=== PATIENT | female | born 1980 | race Caucasian/White ===

== ENCOUNTER 2021-05-09 10:43 | Emergency (ER) | payer OTHER ==
[2021-05-09] MEDS ORDERED: Levofloxacin 500 MG Tab PO ONE ×2 (10:44→12:46)
[2021-05-09] MEDS ORDERED: Acetaminophen/HYDROcodone 325-5 MG Tab PO ONE (12:47)
== END 2021-05-09 13:20 | disposition home or self-care (01) ==
LOC: FB.ED 10:43
DX: S00.502A Unspecified superficial injury of oral cavity, initial encounter (principal); K04.7 Periapical abscess without sinus; K02.9 Dental caries, unspecified; Z88.0 Allergy status to penicillin; Z88.2 Allergy status to sulfonamides; W50.0XXA Accidental hit or strike by another person, initial encounter
CPT/HCPCS: 99282; A9270

== ENCOUNTER 2021-08-16 23:03 | Emergency (ER) | payer MEDICAID, OTHER ==
[2021-08-16] MEDS: hydrOXYzine HCl 50 MG/ML SDV IM ONE (23:20)
[2021-08-16] MEDS: diphenhydrAMINE 50 MG/ML SDV IM ONE (23:20)
[2021-08-16] MEDS: LORazepam 2 MG/ML SDV IM ONE (23:20)
== END 2021-08-16 23:45 | disposition home or self-care (01) ==
LOC: FB.ED 23:03
DX: R06.00 Dyspnea, unspecified (principal); Z88.0 Allergy status to penicillin; Z88.2 Allergy status to sulfonamides
CPT/HCPCS: 96372; 99282; 99283; J1200; J2060; J3410

== ENCOUNTER 2021-08-21 14:33 | Emergency (ER) | payer MEDICAID ==
[2021-08-21] MEDS ORDERED: Doxycycline 100 MG Tab PO ONE (15:38)
== END 2021-08-21 16:00 | disposition home or self-care (01) ==
LOC: FB.ED 14:33
DX: H60.01 Abscess of right external ear (principal); Z79.899 Other long term (current) drug therapy; Z88.0 Allergy status to penicillin; Z88.2 Allergy status to sulfonamides
CPT/HCPCS: 99282; A9270-GY

== ENCOUNTER 2022-07-13 17:00 | Emergency (ER) | payer MEDICAID ==
[2022-07-13] MEDS ORDERED: SUMAtriptan 6 MG/0.5 ML SDV SUBCUT ONE (17:23)
[2022-07-13] MEDS ORDERED: Ketorolac 30 MG/ML SDV IM ONE (17:23)
== END 2022-07-13 18:22 | disposition home or self-care (01) ==
LOC: FB.ED 17:00
DX: G43.909 Migraine, unspecified, not intractable, without status migrainosus (principal); F17.210 Nicotine dependence, cigarettes, uncomplicated; Z88.0 Allergy status to penicillin; Z88.2 Allergy status to sulfonamides; Z79.899 Other long term (current) drug therapy
CPT/HCPCS: 96372; 99283; J1885; J3030

== ENCOUNTER 2022-10-03 21:38 | Emergency (ER) | payer MEDICAID ==
[2022-10-03] MEDS: Lidocaine 2% HCl 6 ML Jel MM STA (22:13)
[2022-10-03] MEDS: Clindamycin HCl 150 MG Cap PO ONE (22:34)
== END 2022-10-03 22:42 | disposition home or self-care (01) ==
LOC: FB.ED 21:38
DX: K02.9 Dental caries, unspecified (principal); K05.6 Periodontal disease, unspecified; F17.210 Nicotine dependence, cigarettes, uncomplicated; Z88.0 Allergy status to penicillin; Z88.2 Allergy status to sulfonamides
CPT/HCPCS: 99282; A9270

== ENCOUNTER 2023-06-01 21:33 | Emergency (ER) | payer MEDICAID ==
[2023-06-01] MEDS: Ketorolac 30 MG/ML SDV IM ONE (22:11)
[2023-06-01] MEDS: LORazepam 2 MG/ML SDV IM ONE (22:17)
== END 2023-06-01 22:33 | disposition home or self-care (01) ==
LOC: FB.ED 21:33
DX: G43.911 Migraine, unspecified, intractable, with status migrainosus (principal); F41.9 Anxiety disorder, unspecified; Z79.899 Other long term (current) drug therapy; Z88.0 Allergy status to penicillin; Z88.2 Allergy status to sulfonamides
CPT/HCPCS: 96372; 99283; J1885; J2060

== ENCOUNTER 2024-01-09 16:47 | Emergency (ER) | payer MEDICAID | END 2024-01-09 17:38 | disposition home or self-care (01) | LOC: FB.ED 16:47 | DX: I83.812 Varicose veins of left lower extremity with pain (principal); M54.10 Radiculopathy, site unspecified; F17.210 Nicotine dependence, cigarettes, uncomplicated; Z79.899 Other long term (current) drug therapy; Z88.0 Allergy status to penicillin; Z88.2 Allergy status to sulfonamides | CPT/HCPCS: 93010; 99283 ==

== ENCOUNTER 2024-03-25 11:02 | Emergency (ER) | payer MEDICAID ==
[2024-03-25 11:54] LABS: BASOPHILS ABSOLUTE AUTO 0.1 x10-3/uL (0.0-0.1); BASOPHILS PERCENT AUTO 0.5 % (0.2-1.5); EOSINOPHILS ABSOLUTE AUTO 0.4 x10-3/uL (0.0-0.8); EOSINOPHILS PERCENT AUTO 3.6 % (0.6-8.1); HEMOGLOBIN 14.2 g/dL (11.4-15.5); LYMPHOCYTES ABSOLUTE AUTO 3.3 x10-3/uL (1.0-4.4); LYMPHOCYTES PERCENT AUTO 29.4 % (18.4-52.1); MEAN CORPUSCULAR HEMOGLOBIN 32.6 pg (23.9-33.9); MEAN CORPUSCULAR HGB CONC 34.7 g/dL (31.9-34.8); MEAN CORPUSCULAR VOLUME 94.1 fL (76.7-100.5); MEAN PLATELET VOLUME 8.3 fL (7.1-12.4); MONOCYTES ABSOLUTE AUTO 0.3 x10-3/uL (0.3-1.0); MONOCYTES PERCENT AUTO 2.7 % (4.4-15.7); NEUTROPHILS ABSOLUTE AUTO 7.1 x10-3/uL (1.5-6.3); NEUTROPHILS PERCENT AUTO 63.8 % (30.8-76.2); PLATELET COUNT,PLT 309 x10(3)uL (151-488); RED BLOOD CELL COUNT 4.36 x10(6)uL (3.60-5.20); RED CELL DISTRIBUTION WIDTH 13.4 % (12.3-16.5); WHITE BLOOD CELL COUNT,WBC 11.2 x10-3/uL (3.0-10.3)
[2024-03-25 12:00] LABS: BLOOD UREA NITROGEN,BUN 8 mg/dL (7-18); BUN/CREATININE RATIO 8.9 (9-20); CALCIUM 8.8 mg/dL (8.6-10.2); CARBON DIOXIDE,CO2 28 mmol/L (21-32); CHLORIDE,CL 105 mmol/L (100-110); CREATININE 0.9 mg/dL (0.55-1.02); ESTIMATED GFR 80 mL/min (>60); GLUCOSE RANDOM 88 mg/dL (80-116); POTASSIUM,K 3.3 mmol/L (3.5-5.3); SODIUM,NA 144 mmol/L (135-145)
[2024-03-25 12:06] LABS: A/G RATIO 1.1; ALANINE AMINOTRANSFERASE,ALT 20 U/L (12-36); ALBUMIN 3.6 g/dL (3.5-5.2); ALKALINE PHOSPHATASE 73 IU/L (56-112); ASPARTATE AMNIOTRANSFERASE,AST 14 IU/L (5-25); BILIRUBIN TOTAL 0.4 mg/dL (0.1-1.3); PROTEIN TOTAL,TP 6.9 g/dL (6.0-8.0)
== END 2024-03-25 12:25 | disposition home or self-care (01) ==
LOC: FB.ED 11:02
DX: R07.89 Other chest pain (principal); E87.6 Hypokalemia; Z88.0 Allergy status to penicillin; Z88.2 Allergy status to sulfonamides; Z79.899 Other long term (current) drug therapy
CPT/HCPCS: 36415; 80053; 84484; 85025; 85379; 93005; 99285

== ENCOUNTER 2024-07-25 19:31 | Emergency (ER) | payer SELFPAY | END 2024-07-25 20:30 | disposition home or self-care (01) | LOC: FB.ED 19:31 | DX: N95.9 Unspecified menopausal and perimenopausal disorder (principal); Z32.02 Encounter for pregnancy test, result negative; Z88.0 Allergy status to penicillin; Z88.2 Allergy status to sulfonamides; Z79.899 Other long term (current) drug therapy | CPT/HCPCS: 36415; 84702; 99282 ==

== ENCOUNTER 2024-12-06 19:42 | Emergency (ER) | payer MEDICAID | END 2024-12-06 20:52 | disposition home or self-care (01) | LOC: FB.ED 19:42 | DX: K04.7 Periapical abscess without sinus (principal); Z79.899 Other long term (current) drug therapy; Z88.1 Allergy status to other antibiotic agents; Z88.0 Allergy status to penicillin; Z88.2 Allergy status to sulfonamides; Z91.040 Latex allergy status | CPT/HCPCS: 87426; 99283; A9270 ==

== ENCOUNTER 2024-12-21 09:37 | Emergency (ER) | payer MEDICAID ==
[2024-12-21] MEDS ORDERED: Sodium Chloride 0.9% 10 ML Syringe FLUSH PRN (10:24)
[2024-12-21] MEDS: Ketorolac 30 MG/ML SDV IVPUSH ONE (10:32)
[2024-12-21] MEDS: hydrOXYzine HCl 50 MG/ML SDV IM ONE (10:35)
[2024-12-21 10:37] LABS: BASOPHILS ABSOLUTE AUTO 0.1 x10-3/uL (0.0-0.1); BASOPHILS PERCENT AUTO 1.0 % (0.2-1.5); EOSINOPHILS ABSOLUTE AUTO 0.3 x10-3/uL (0.0-0.8); EOSINOPHILS PERCENT AUTO 5.6 % (0.6-8.1); LYMPHOCYTES ABSOLUTE AUTO 1.5 x10-3/uL (1.0-4.4); LYMPHOCYTES PERCENT AUTO 26.6 % (18.4-52.1); MEAN PLATELET VOLUME 8.8 fL (7.1-12.4); MONOCYTES ABSOLUTE AUTO 0.2 x10-3/uL (0.3-1.0); MONOCYTES PERCENT AUTO 4.4 % (4.4-15.7); NEUTROPHILS ABSOLUTE AUTO 3.4 x10-3/uL (1.5-6.3); NEUTROPHILS PERCENT AUTO 62.4 % (30.8-76.2); PLATELET COUNT,PLT 281 x10(3)uL (151-488); RED BLOOD CELL COUNT 4.33 x10(6)uL (3.60-5.20); RED CELL DISTRIBUTION WIDTH 12.7 % (12.3-16.5); WHITE BLOOD CELL COUNT,WBC 5.5 x10-3/uL (3.0-10.3)
[2024-12-21 10:39] LABS: CARBON DIOXIDE,CO2 26 mmol/L (21-32); CHLORIDE,CL 105 mmol/L (100-110); CREATININE 0.7 mg/dL (0.55-1.02); EST CRCL DRUG DOSING (CG) 84.89 mL/min; ESTIMATED GFR 108 mL/min (>60); GLUCOSE RANDOM 106 mg/dL (80-116); POTASSIUM,K 3.0 mmol/L (3.5-5.3); SODIUM,NA 140 mmol/L (135-145)
[2024-12-21 10:40] LABS: BLOOD UREA NITROGEN,BUN < 5 mg/dL (7-18)
[2024-12-21 10:46] LABS: A/G RATIO 1.0; ALANINE AMINOTRANSFERASE,ALT 16 U/L (12-36); ASPARTATE AMNIOTRANSFERASE,AST 15 IU/L (5-25); BILIRUBIN TOTAL 0.5 mg/dL (0.1-1.3); PROTEIN TOTAL,TP 7.1 g/dL (6.0-8.0)
[2024-12-21] MEDS ORDERED: Potassium Chloride 20 MEQ Tab.ER PO ONE (11:03)
[2024-12-21] MEDS: Potassium Chloride 20 MEQ Tab.ER PO ONE (11:11)
== END 2024-12-21 12:00 | disposition home or self-care (01) ==
LOC: FB.ED 09:37
DX: G43.109 Migraine with aura, not intractable, without status migrainosus (principal); F17.200 Nicotine dependence, unspecified, uncomplicated; Z88.0 Allergy status to penicillin; Z88.1 Allergy status to other antibiotic agents; Z88.2 Allergy status to sulfonamides; Z91.040 Latex allergy status; Z79.899 Other long term (current) drug therapy
CPT/HCPCS: 80053; 85025; 86140; 96361; 96372; 96374; 99284; A9270; J1885; J3410; J7030

== ENCOUNTER 2025-01-22 19:35 | Emergency (ER) | payer MEDICAID ==
[2025-01-22] MEDS: diphenhydrAMINE 50 MG/ML SDV IVPUSH ONE (20:11)
[2025-01-22] MEDS: Ketorolac 30 MG/ML SDV IVPUSH ONE (20:11)
[2025-01-22 20:27] LABS: BASOPHILS ABSOLUTE AUTO 0.1 x10-3/uL (0.0-0.1); EOSINOPHILS ABSOLUTE AUTO 0.1 x10-3/uL (0.0-0.8); EOSINOPHILS PERCENT AUTO 1.2 % (0.6-8.1); LYMPHOCYTES ABSOLUTE AUTO 1.1 x10-3/uL (1.0-4.4); MONOCYTES ABSOLUTE AUTO 0.3 x10-3/uL (0.3-1.0); NEUTROPHILS ABSOLUTE AUTO 6.2 x10-3/uL (1.5-6.3)
[2025-01-22 20:31] LABS: BASOPHILS PERCENT AUTO 0.9 % (0.2-1.5); LYMPHOCYTES PERCENT AUTO 14.6 % (18.4-52.1); MEAN PLATELET VOLUME 8.9 fL (7.1-12.4); MONOCYTES PERCENT AUTO 3.8 % (4.4-15.7); NEUTROPHILS PERCENT AUTO 79.5 % (30.8-76.2); PLATELET COUNT,PLT 267 x10(3)uL (151-488); RED BLOOD CELL COUNT 4.33 x10(6)uL (3.60-5.20); RED CELL DISTRIBUTION WIDTH 12.1 % (12.3-16.5); WHITE BLOOD CELL COUNT,WBC 7.8 x10-3/uL (3.0-10.3)
[2025-01-22 20:34] LABS: BLOOD UREA NITROGEN,BUN 8 mg/dL (7-18); CARBON DIOXIDE,CO2 25 mmol/L (21-32); CHLORIDE,CL 106 mmol/L (100-110); CREATININE 0.7 mg/dL (0.55-1.02); ESTIMATED GFR 108 mL/min (>60); GLUCOSE RANDOM 118 mg/dL (80-116); POTASSIUM,K 2.9 mmol/L (3.5-5.3); SODIUM,NA 142 mmol/L (135-145)
[2025-01-22 20:41] LABS: A/G RATIO 1.0; ALANINE AMINOTRANSFERASE,ALT 15 U/L (12-36); ASPARTATE AMNIOTRANSFERASE,AST 20 IU/L (5-25); BILIRUBIN TOTAL 0.5 mg/dL (0.1-1.3); PROTEIN TOTAL,TP 7.1 g/dL (6.0-8.0)
[2025-01-22] MEDS: hydrOXYzine HCl 50 MG/ML SDV IM ONE (20:58)
[2025-01-22] MEDS: Ondansetron 4 MG/2 ML SDV IVPUSH ONE (21:00)
[2025-01-22] MEDS: LORazepam 2 MG/ML SDV IVPUSH ONE (21:33)
== END 2025-01-22 21:45 | disposition home or self-care (01) ==
LOC: FB.ED 19:35
DX: F41.9 Anxiety disorder, unspecified (principal); R11.2 Nausea with vomiting, unspecified; Z88.1 Allergy status to other antibiotic agents; Z88.2 Allergy status to sulfonamides; Z88.0 Allergy status to penicillin; Z79.899 Other long term (current) drug therapy
CPT/HCPCS: 80053; 85025; 86140; 96361; 96372; 96374; 96375; 99284; J1200; J1885; J2060; J2405; J2765; J3410; J7030

== ENCOUNTER 2025-02-15 03:03 | Emergency (ER) | payer MEDICAID ==
[2025-02-15] MEDS: Sodium Chloride 0.9% 10 ML Syringe FLUSH PRN (03:40)
[2025-02-15] MEDS: Ketorolac 30 MG/ML SDV IVPUSH ONE (03:40)
[2025-02-15 03:43] LABS: BASOPHILS ABSOLUTE AUTO 0.1 x10-3/uL (0.0-0.1); BASOPHILS PERCENT AUTO 0.7 % (0.2-1.5); EOSINOPHILS ABSOLUTE AUTO 0.5 x10-3/uL (0.0-0.8); EOSINOPHILS PERCENT AUTO 6.7 % (0.6-8.1); LYMPHOCYTES ABSOLUTE AUTO 1.8 x10-3/uL (1.0-4.4); LYMPHOCYTES PERCENT AUTO 26.5 % (18.4-52.1); MEAN PLATELET VOLUME 8.8 fL (7.1-12.4); MONOCYTES ABSOLUTE AUTO 0.3 x10-3/uL (0.3-1.0); MONOCYTES PERCENT AUTO 5.0 % (4.4-15.7); NEUTROPHILS ABSOLUTE AUTO 4.2 x10-3/uL (1.5-6.3); NEUTROPHILS PERCENT AUTO 61.1 % (30.8-76.2); PLATELET COUNT,PLT 256 x10(3)uL (151-488); RED BLOOD CELL COUNT 4.41 x10(6)uL (3.60-5.20); RED CELL DISTRIBUTION WIDTH 12.9 % (12.3-16.5); WHITE BLOOD CELL COUNT,WBC 6.8 x10-3/uL (3.0-10.3)
[2025-02-15 03:47] LABS: BLOOD UREA NITROGEN,BUN 8 mg/dL (7-18); CARBON DIOXIDE,CO2 28 mmol/L (21-32); CHLORIDE,CL 104 mmol/L (100-110); CREATININE 0.8 mg/dL (0.55-1.02); EST CRCL DRUG DOSING (CG) 72.69 mL/min; ESTIMATED GFR 92 mL/min (>60); GLUCOSE RANDOM 93 mg/dL (80-116); POTASSIUM,K 3.2 mmol/L (3.5-5.3); SODIUM,NA 142 mmol/L (135-145)
[2025-02-15 03:53] LABS: A/G RATIO 0.9; ALANINE AMINOTRANSFERASE,ALT 10 U/L (12-36); ASPARTATE AMNIOTRANSFERASE,AST 11 IU/L (5-25); BILIRUBIN TOTAL 0.4 mg/dL (0.1-1.3); PROTEIN TOTAL,TP 6.9 g/dL (6.0-8.0)
[2025-02-15] MEDS: LORazepam 2 MG/ML SDV IVPUSH ONE (04:02)
[2025-02-15] MEDS: Potassium Chloride 20 MEQ Tab.ER PO ONE (04:59)
== END 2025-02-15 05:10 | disposition home or self-care (01) ==
LOC: FB.ED 03:03
DX: K51.80 Other ulcerative colitis without complications (principal); E87.6 Hypokalemia; F17.210 Nicotine dependence, cigarettes, uncomplicated; Z88.1 Allergy status to other antibiotic agents; Z88.0 Allergy status to penicillin; Z88.2 Allergy status to sulfonamides; Z88.8 Allergy status to other drugs, medicaments and biological substances; Z79.899 Other long term (current) drug therapy
CPT/HCPCS: 36415; 74176; 80053; 83690; 85025; 86140; 96361; 96374; 96375; 99284; A9270; J1885; J2060; J7030; J7512

== ENCOUNTER 2025-02-24 03:45 | Emergency (ER) | payer BC, MEDICAID ==
[2025-02-24] MEDS ORDERED: Sodium Chloride 0.9% 10 ML Syringe FLUSH PRN (04:28)
[2025-02-24] MEDS: Ondansetron 4 MG/2 ML SDV IVPUSH ONE (04:39)
[2025-02-24] MEDS: diphenhydrAMINE 50 MG/ML SDV IVPUSH ONE (04:39)
[2025-02-24 04:56] LABS: MEAN PLATELET VOLUME 8.1 fL (7.1-12.4); PLATELET COUNT,PLT 332 x10(3)uL (151-488); RED BLOOD CELL COUNT 4.90 x10(6)uL (3.60-5.20); RED CELL DISTRIBUTION WIDTH 13.2 % (12.3-16.5); WHITE BLOOD CELL COUNT,WBC 10.6 x10-3/uL (3.0-10.3)
[2025-02-24 05:00] LABS: BLOOD UREA NITROGEN,BUN 7 mg/dL (7-18); CARBON DIOXIDE,CO2 32 mmol/L (21-32); CHLORIDE,CL 102 mmol/L (100-110); CREATININE 0.8 mg/dL (0.55-1.02); EST CRCL DRUG DOSING (CG) 72.69 mL/min; ESTIMATED GFR 92 mL/min (>60); GLUCOSE RANDOM 107 mg/dL (80-116); POTASSIUM,K 3.3 mmol/L (3.5-5.3); SODIUM,NA 142 mmol/L (135-145)
[2025-02-24 05:06] LABS: A/G RATIO 0.8; ALANINE AMINOTRANSFERASE,ALT 15 U/L (12-36); ASPARTATE AMNIOTRANSFERASE,AST 18 IU/L (5-25); BILIRUBIN TOTAL 0.7 mg/dL (0.1-1.3); PROTEIN TOTAL,TP 7.6 g/dL (6.0-8.0)
[2025-02-24 05:32] LABS: GLUCOSE,URINE NORMAL (NORMAL); OCCULT BLOOD,URINE NEGATIVE (NEGATIVE)
[2025-02-24 05:33] LABS: APPEARANCE,URINE SLIGHTLY CLOUDY (CLEAR)
[2025-02-24 05:42] LABS: EOSINOPHILS PERCENT MAN 1 % (0-5); LYMPHOCYTES PERCENT MAN 4 % (13-37); MONOCYTES PERCENT MAN 6 % (4-12); SEG NEUTROPHILS PERCENT MAN 89 % (46-82)
[2025-02-24] MEDS: LORazepam 2 MG/ML SDV IVPUSH ONE (05:50)
[2025-02-24] MEDS: Ketorolac 30 MG/ML SDV IVPUSH ONE (05:50)
[2025-02-24] MEDS: LORazepam 2 MG/ML SDV ONE (05:52)
[2025-02-24] MEDS: Iopamidol 755 Mg/ML 100 ML Bottle IV ONE (06:25)
== END 2025-02-24 08:41 | disposition home or self-care (01) ==
LOC: FB.ED 03:45
DX: I77.6 Arteritis, unspecified (principal); E86.0 Dehydration; R11.2 Nausea with vomiting, unspecified; R19.7 Diarrhea, unspecified; E87.20 Acidosis, unspecified; F17.200 Nicotine dependence, unspecified, uncomplicated; Z88.0 Allergy status to penicillin; Z88.1 Allergy status to other antibiotic agents; Z88.2 Allergy status to sulfonamides; Z91.040 Latex allergy status; Z79.899 Other long term (current) drug therapy; Z90.49 Acquired absence of other specified parts of digestive tract
CPT/HCPCS: 36415; 74177; 80053; 81003; 81025; 83605; 83690; 83735; 85025; 86140; 96361; 96365; 96375; 99284-25; J1200; J1885; J2060; J2405; J2550; J7030; Q9967